=== PATIENT | male | born 1965 | race Caucasian/White ===

== ENCOUNTER 2024-12-24 07:29 | Day surgery (SDC) | payer BC ==
[~2024-12-24] VITALS: Ht 182.9 cm; Wt 97.0 kg
[2024-12-24] VITALS (9 sets, daily range): BP systolic 107–148; BP diastolic 74–107
[~2024-12-24 07:29] MED LIST: ASPI81CH PO; ELIQUIS5 M2 PO; ENTRESTO 24 MG1 EACH PO; FURO40 PO; Ginseng250 MG PO; METO50ER PO
[2024-12-24] MEDS ORDERED: NS 250 ML IV ONE (07:45)
[2024-12-24] MEDS ORDERED: Verapamil HCL 2.5 MG/ML 2ML Injection ONE (07:45)
[2024-12-24] MEDS ORDERED: Heparin Sodium 1000 Units/ML 10ML MDV ONE (07:45)
[2024-12-24] MEDS ORDERED: NS 1,000 ML IV ONE ×2 (07:45→08:25)
[2024-12-24] MEDS ORDERED: FentaNYL Citrate 50 MCG/ML 2 ML Injection ONE (08:24)
[2024-12-24] MEDS ORDERED: Midazolam HCl 1MG / ML 2ML Vial ONE (08:25)
[2024-12-24] MEDS ORDERED: Nitroglycerin 2 MG/20 ML BTL ONE (09:02)
--- NOTE | 2024-12-24 10:33 | NUR ---
r radial site soft and non-tende rper pt. no bleeding noted.
--- NOTE | 2024-12-24 10:47 | NUR ---
2CC REMOVED FROM TR BAND. SITE SOFT AND NON-TENDER PER PT. NO BLEEDING NOTED.
--- NOTE | 2024-12-24 10:55 | NUR ---
2CC REMOVED FROM TR BAND. SITE SOFT AND MILDLY TENDER PER PT. NO BLEEDING NOTED.
--- NOTE | 2024-12-24 11:09 | NUR ---
TR BAND FULLY DEFLATED. SITE SOFT AND NON-TENDER PER PT. NO BLEEDING NOTED.
--- NOTE | 2024-12-24 11:59 | NUR ---
radial site started to bleed. manual hold for 15 minutes. bleeding stopped. site now soft and non-tender per pt. no bleeding noted.
--- NOTE | 2024-12-24 12:05 | NUR ---
dr baird informed of site bleeding. dr baird at bedside discussing future plan of care.
--- NOTE | 2024-12-24 12:20 | NUR ---
radial site soft and non-tender per pt. no bleeding noted.
--- NOTE | 2024-12-24 13:37 | NUR ---
PT GIVEN DC INSTRUCTIONS AND VERBALIZED UNDERSTANDING. IV OUT. RADIAL SITE SOFT AND NON-TENDER. NO BLEEDING NOTED. CLOTH DOT, ARM BOARD, AND SLING APPLIED. PT CHANGED. PT TAKEN TO [facility] VIA BY REBEKAH SINGH. FAMILY TO TAKE PT HOME.
== END 2024-12-24 13:00 | disposition home or self-care (01) ==
LOC: MHTC 07:29
DX: I42.0 Dilated cardiomyopathy (principal); I48.19 Other persistent atrial fibrillation; I25.10 Atherosclerotic heart disease of native coronary artery without angina pectoris; I11.0 Hypertensive heart disease with heart failure; I50.9 Heart failure, unspecified; Z87.891 Personal history of nicotine dependence; Z79.01 Long term (current) use of anticoagulants; Z79.899 Other long term (current) drug therapy; Z88.0 Allergy status to penicillin
CPT/HCPCS: 76937; 93458; 99152; 99153; C1769; C1887; C1894; J1644; J2250; J3010; J7030; J7050; Q9967